=== PATIENT | male | born 1975 | race Caucasian/White ===

== ENCOUNTER 2020-11-04 16:25 | Emergency (ER) | payer OTHER ==
[~2020-11-04] VITALS: Ht 180.3 cm; Wt 117.9 kg
[2020-11-04 16:49] LABS: HEMATOCRIT 48 % (40-54); HEMOGLOBIN 16.7 G/DL (13.3-17.7); LYMPHOCYTES % (AUTO) 34 % (12-44); MEAN CORPUSCULAR HEMOGLOBIN 30 PG (25-34); MEAN CORPUSCULAR HGB CONC 35 G/DL (32-36); MEAN CORPUSCULAR VOLUME 86 FL (80-99); MEAN PLATELET VOLUME 11.1 FL (7.4-10.4); NEUTROPHILS % (AUTO) 57 % (42-75); PLATELET COUNT 189 10^3/uL (130-400); WHITE BLOOD COUNT 6.3 10^3/uL (4.3-11.0)
[2020-11-04 16:50] LABS: BASOPHILS % (AUTO) 1 % (0-10); EOSINOPHILS % (AUTO) 0 % (0-10); LYMPHOCYTES # (AUTO) 2.2 X 10^3 (1.0-4.0); MONOCYTES # (AUTO) 0.5 X 10^3 (0.0-1.0); MONOCYTES % (AUTO) 8 % (0-12); NEUTROPHILS # (AUTO) 3.6 X 10^3 (1.8-7.8)
--- NOTE | 2020-11-04 17:01 | Diagnostic Imaging Report ---
INDICATION: Mid sternal chest pain x2 hours. TECHNIQUE: Two view chest 4:50 PM CORRELATION STUDY: None FINDINGS: Heart size is borderline. Vasculature within normal limits. The lungs are clear with no consolidating infiltrate. There is no significant pleural effusion or pneumothorax. Slight accentuated thoracic kyphosis. IMPRESSION: 1. Negative for acute abnormality of the chest. Dictated by: Dictated on workstation # [id number]
[2020-11-04 17:05] LABS: BUN/CREATININE RATIO 17; CARBON DIOXIDE 25 MMOL/L (21-32); CHLORIDE 100 MMOL/L (98-107); CREATININE SERUM 0.95 MG/DL (0.60-1.30); GFR ESTIMATED > 60; POTASSIUM 4.2 MMOL/L (3.6-5.0); SODIUM 137 MMOL/L (135-145)
[2020-11-04 17:06] LABS: ALANINE AMINOTRANSFERASE 39 U/L (0-55); ALKALINE PHOSPHATASE 77 U/L (40-136); BILIRUBIN,TOTAL 0.7 MG/DL (0.1-1.0); CALCIUM 9.6 MG/DL (8.5-10.1); GLUCOSE 116 MG/DL (70-105); TOTAL PROTEIN 8.2 GM/DL (6.4-8.2)
--- NOTE | 2020-11-04 17:19 | ED Cardiac General ---
History of Present Illness General Chief Complaint: Chest Pain Stated Complaint: CHEST PAIN Nursing Triage Note: Patient reports sternal chest pain that began this morning, pain rated 1-2/10 now, 5-6/10 at worst, described as "sore." Patient denies any cough, shortness of breath, fever, nausea/vomiting, etc. Source: patient History of Present Illness Date Seen by Provider: Nov 04, 2020 Time Seen by Provider: 16:30 Initial Comments Patient is a 45-year-old male history of hypertension new complaints or presents with nonexertional substernal chest pain first noticed this morning. Pain is described as dull aching is not reproducible. It lasts approximately 5 minutes and is not improved or worsened by any activity or position change. Patient denies nausea, sweats, shortness of breath, leg pain tenderness or swelling. Patient states he recently started exercising fitness training this past week but has not exercised the past 3 days. He denies any abdominal pain or discomfort. Denies increased anxiety. Denies any pain radiating to neck back shoulder or jaw or arm. No other acute symptoms or complaints. Patient visiting from [place] with plans to return this evening. Has not had greater than 2 h ours or driving at a time Severity: mild Location: substernal Activities at Onset: none Prior CP/Workup: non-cardiac (patient had similar chest pain a year ago after work starting to work out. States his primary care doctor told him that it was musculoskeletal related to a fitness routine) NTG SL FACILITY EXAMINER: No ASA po FACILITY EXAMINER: No Allergies and Home Medications Allergies Coded Allergies: No Known Drug Allergies (Unverified , 11/04/20) Patient Home Medication List Home Medication List Reviewed: Yes Review of Systems Review of Systems Constitutional: see HPI EENTM: See HPI Respiratory: See HPI Cardiovascular: See HPI Gastrointestinal: See HPI Genitourinary: See HPI Musculoskeletal: see HPI Skin: see HPI Psychiatric/Neurological: See HPI Endocrine: See HPI Hematologic/Lymphatic: See HPI All Other Systems Reviewed Negative Unless Noted: Yes Past Fsoegwd-Mnipty-Heolds Hx Past Med/Social Hx: Reviewed Nursing Past Med/Soc Hx Patient Social History Alcohol Use: Denies Use Recreational Drug Use: No Smoking Status: Never a Smoker 2nd Hand Smoke Exposure: No Recent Foreign Travel: No Contact w/Someone Who Travel: No Recent Infectious Disease Expo: No Recent Hopitalizations: No Physical Abuse: No Sexual Abuse: No Mistreated: No Fear: No Seasonal Allergies Seasonal Allergies: No Past Medical History Surgeries: No Respiratory: No Cardiac: Yes Hypertension Neurological: No Genitourinary: No Gastrointestinal: No Musculoskeletal: No Endocrine: No HEENT: No Cancer: No Psychosocial: No Integumentary: No Physical Exam Vital Signs Vital Signs - First Documented 11/04/20 16:42 Temp 36.8 Pulse 91 Resp 16 B/P (MAP) 146/88 (107) Pulse Ox 98 O2 Delivery Room Air Capillary Refill : Less Than 3 Seconds Height, Weight, BMI Height: '" Weight: lbs. oz. kg; 36.00 BMI Method: General Appearance: WD/WN HEENT: PERRL/EOMI Neck: Full Range of Motion, Non Tender, Supple Respiratory: Lungs Clear, Other (min sternal tednerness reproducing complaint) Cardiovascular: Regular Rate, Rhythm, No Edema, Normal Peripheral Pulses Gastrointestinal: Soft Extremity: No Calf Tenderness; No Calf Tenderness Neurologic/Psychiatric: Alert, Oriented x3 Skin: Normal Color, Warm/Dry Focused Exam Sepsis Stage: Ruled Out Progress/Results/Core Measures Results/Orders Lab Results Laboratory Tests Test 11/04/20 16:40 Range/Units White Blood Count 6.3 4.3-11.0 10^3/uL Red Blood Count 5.65 4.35-5.85 10^6/uL Hemoglobin 16.7 13.3-17.7 G/DL Hematocrit 48 40-54 % Mean Corpuscular Volume 86 80-99 FL Mean Corpuscular Hemoglobin 30 25-34 PG Mean Corpuscular Hemoglobin Concent 35 32-36 G/DL Red Cell Distribution Width 13.3 10.0-14.5 % Platelet Count 189 130-400 10^3/uL Mean Platelet Volume 11.1 H 7.4-10.4 FL Immature Granulocyte % (Auto) 0 % Neutrophils (%) (Auto) 57 42-75 % Lymphocytes (%) (Auto) 34 12-44 % Monocytes (%) (Auto) 8 0-12 % Eosinophils (%) (Auto) 0 0-10 % Basophils (%) (Auto) 1 0-10 % Neutrophils # (Auto) 3.6 1.8-7.8 X 10^3 Lymphocytes # (Auto) 2.2 1.0-4.0 X 10^3 Monocytes # (Auto) 0.5 0.0-1.0 X 10^3 Eosinophils # (Auto) 0.0 0.0-0.3 10^3/uL Basophils # (Auto) 0.0 0.0-0.1 10^3/uL Immature Granulocyte # (Auto) 0.0 0.0-0.1 10^3/uL Sodium Level 137 135-145 MMOL/L Potassium Level 4.2 3.6-5.0 MMOL/L Chloride Level 100 98-107 MMOL/L Carbon Dioxide Level 25 21-32 MMOL/L Anion Gap 12 5-14 MMOL/L Blood Urea Nitrogen 16 7-18 MG/DL Creatinine 0.95 0.60-1.30 MG/DL Estimat Glomerular Filtration Rate > 60 BUN/Creatinine Ratio 17 Glucose Level 116 H 70-105 MG/DL Calcium Level 9.6 8.5-10.1 MG/DL Corrected Calcium 8.5-10.1 MG/DL Total Bilirubin 0.7 0.1-1.0 MG/DL Aspartate Amino Transf (AST/SGOT) 29 5-34 U/L Alanine Aminotransferase (ALT/SGPT) 39 0-55 U/L Alkaline Phosphatase 77 40-136 U/L Troponin I < 0.30 <0.30 NG/ML Total Protein 8.2 6.4-8.2 GM/DL Albumin 5.0 H 3.2-4.5 GM/DL My Orders Orders - RALF YUSUF DO Cbc With Automated Diff (11/04/20 16:40) Comprehensive Metabolic Panel (11/04/20 16:40) Troponin I Fs (11/04/20 16:40) Chest Pa/Lat (2 View) (11/04/20 16:40) Ekg Tracing (11/04/20 16:48) Ed Iv/Invasive Line Start (11/04/20 16:48) Vital Signs/I&O 11/04/20 11/04/20 16:42 16:45 Temp 36.8 Pulse 91 Resp 16 B/P (MAP) 146/88 (107) Pulse Ox 98 O2 Delivery Room Air Room Air Blood Pressure Mean: 107 Departure Communication (Admissions) Chest x-ray: No acute cardiopulmonary disease on preliminary ED review. EKG: Normal sinus rhythm, rate 96, no acute ST-T wave changes, nonspecific changes with low voltage in precordial leads. Patient with atypical chest pain, with reproducible component emergency department. Denies exertional chest pain while exercising this past week or when walking 1 mile this morning. He states his symptoms were not post exertion but noticed 2 or 3 days afterwards. His EKG is nonacute, troponin is negative. Patient's cardiac risk factors include heart hypertension. Patient has heart score of 2 with predicted risk of coronary disease of less than 2%. Patient is low risk and requests discharge home so that he may return to [place] and follow-up with his PCP. He is instructed to take daily baby aspirin and to forego his exercise routine until he is cleared by his primary care physician. She experience any new or worsening symptoms he should immediately return to the closest emergency department. Patient verbalizes understanding. Discharge instructions prior to departure. Impression Primary Impression: Chest pain Disposition: 01 HOME, SELF-CARE Condition: Stable Departure-Patient Inst. Decision time for Depature: 17:19 Referrals: NO,LOCAL PHYSICIAN (PCP/Family) Primary Care Physician Patient Instructions: Chest Pain (DC) Add. Discharge Instructions: You were evaluated in the emergency department for chest pain. EKG lab and imaging studies were performed and are nondiagnostic. The exact cause of your symptoms has not been determined. Important that to take 2 baby aspirins daily and discontinue your exercise routine and to you follow up with your PCP later cleared to resume exercise. Additional cardiac testing may be required including a stress test. In the meantime, if you develop new or worsening symptoms, please go to the closest emergency department. All discharge instructions reviewed with patient and/or family. Voiced understanding. RALF YUSUF DO Nov 04, 2020 17:19
[2020-11-04 17:44] VITALS: BP 132/86
== END 2020-11-04 17:47 | disposition home or self-care (01) ==
LOC: ER FS 16:28
DX: R07.9 Chest pain, unspecified (principal)
CPT/HCPCS: 36415; 71046; 80053; 84484; 85025; 93005